=== PATIENT | female | born 1970 | race Caucasian/White ===

== ENCOUNTER 2022-12-30 12:09 | Emergency (ER) | payer OTHER ==
[2022-12-30 13:19] LABS: CHLORIDE,CL 103 mmol/L (98-107); SODIUM,NA 138 mmol/L (136-145)
[2022-12-30 13:20] LABS: ANION GAP 11.3 mmol/L (5-15); ESTIMATED GFR 77 mL/min (>=60)
[2022-12-30] MEDS ORDERED: Ketorolac 30 MG/ML SDV IM ONE (13:27)
== END 2022-12-30 13:42 | disposition home or self-care (01) ==
LOC: VM.ED 12:09
DX: R51.9 Headache, unspecified (principal); R42 Dizziness and giddiness; E11.9 Type 2 diabetes mellitus without complications; Z79.84 Long term (current) use of oral hypoglycemic drugs
CPT/HCPCS: 36415; 70450; 80053; 81003; 82550; 83615; 83735; 84484; 85025; 86140; 93005; 93010; 96372; 99284; J1885

== ENCOUNTER 2024-09-30 12:13 | Inpatient (IN) | payer OTHER ==
[2024-09-30] MEDS ORDERED: Sodium Chloride 0.9% 10 ML Syringe FLUSH PRN (12:35)
[2024-09-30 13:05] LABS: HEMATOCRIT 33.5 % (33.0-47.0); HEMOGLOBIN 11.9 g/dL (12.0-16.0); IMMATURE GRAN ABSOLUTE AUTO 0.16 x10^3/uL (0.00-0.07); LYMPHOCYTES ABSOLUTE AUTO 0.2 x10^3/uL (1.0-4.8); MEAN CORPUSCULAR HEMOGLOBIN 31.1 pg (26.0-32.0); MEAN CORPUSCULAR HGB CONC 35.5 g/dL (32.0-36.0); MEAN CORPUSCULAR VOLUME 87.5 fL (78.0-93.0); MONOCYTES ABSOLUTE AUTO 0.8 x10^3/uL (0.0-0.8); MONOCYTES PERCENT AUTO 6.1 % (2.0-11.0); NEUTROPHILS ABSOLUTE AUTO 12.4 x10^3/uL (1.8-7.7); NEUTROPHILS PERCENT AUTO 91.2 % (50.0-80.0); PLATELET COUNT,PLT 168 x10^3/uL (130-400); RED BLOOD CELL COUNT 3.83 x10^6/uL (4.00-5.50); WHITE BLOOD CELL COUNT,WBC 13.5 x10^3/uL (4.0-10.0)
[2024-09-30 13:11] LABS: LYMPHOCYTES PERCENT AUTO 1.5 % (25.0-50.0)
[2024-09-30] MEDS: Sodium Chloride 0.9% 1,000 ML IV ONE (13:25)
[2024-09-30] MEDS: cefTRIAXone 2 GM Vial IVPUSH ONE (13:25)
[2024-09-30 13:26] LABS: LACTIC ACID 1.6 mmol/L (0.4-2.0)
[2024-09-30 13:30] LABS: A/G RATIO 0.48; ALANINE AMINOTRANSFERASE,ALT 16 U/L (14-59); ALBUMIN 2.1 g/dL (3.4-5.0); ALKALINE PHOSPHATASE 104 U/L (46-116); ANION GAP 18.4 mmol/L (5-15); ASPARTATE AMNIOTRANSFERASE,AST 16 U/L (15-37); BILIRUBIN TOTAL 0.5 mg/dL (0.2-1.0); BLOOD UREA NITROGEN,BUN 62 mg/dL (7-18); CALCIUM 9.2 mg/dL (8.5-10.1); CARBON DIOXIDE,CO2 21 mmol/L (21-32); CHLORIDE,CL 87 mmol/L (98-107); ESTIMATED GFR 18 mL/min (>=60); GLUCOSE RANDOM 400 mg/dL (70-99); POTASSIUM,K 4.4 mmol/L (3.5-5.1); PROTEIN TOTAL,TP 6.5 g/dL (6.4-8.2)
[2024-09-30 13:36] LABS: SODIUM,NA 122 mmol/L (136-145)
[2024-09-30 13:41] LABS: C-REACTIVE PROTEIN 31.83 mg/dL (<=0.50)
[2024-09-30 14:02] LABS: HCO3 VENOUS,POC 17 mmol/L (22-29); O2 SATURATION VENOUS,POC 77 %; PCO2 VENOUS,POC 30 mmHg (41-51); PH VENOUS,POC 7.38 pH (7.32-7.43); PO2 VENOUS,POC 42 mmHg
[2024-09-30] MEDS ORDERED: Ondansetron 4 MG/2 ML SDV IV PRN (14:31)
[2024-09-30] MEDS ORDERED: Magnesium Hydroxide 400 MG/5 ML Susp 30 ML Cup PO PRN (14:34)
[2024-09-30] MEDS ORDERED: 50% Dextrose in Water 50 ML Syringe IVPUSH PRN ×2 (14:37→22:20)
[2024-09-30] MEDS ORDERED: Glucagon,Human Recombinant 1 MG Vial IM PRN ×2 (14:37→22:20)
[2024-09-30] MEDS ORDERED: Albuterol HFA 18 Gm Inhaler INH PRN (14:41)
[2024-09-30] MEDS ORDERED: [UNRECOGNIZED DRUG - REMARK] SCH (14:45)
[2024-09-30 15:32] LABS: LACTIC ACID 1.6 mmol/L (0.4-2.0)
[2024-09-30] MEDS: Morphine 2 MG/ML SYRINGE IVPUSH PRN (15:32)
[2024-09-30] MEDS: Sodium Chloride 0.9% 1,000 ML IV SCH (15:32)
[2024-09-30] MEDS: Insulin Lispro 100 Units/ML 3 ML Vial SUBCUT SCH (18:06)
[2024-09-30] MEDS: traZODone 50 MG Tab PO SCH (21:55)
[2024-09-30] MEDS: Enoxaparin 30 MG/0.3 ML Syringe SUBCUT SCH (21:55)
[2024-09-30] MEDS: VARENICLINE TARTRATE SCH (22:24)
[2024-09-30] MEDS: Insulin Regular, Human 100 Units/ML 10 ML Vial IV ONE (22:54)
[2024-10-01 08:01] LABS: BASOPHILS PERCENT AUTO 0.1 % (0.2-1.2); HEMATOCRIT 29.1 % (33.0-47.0); HEMOGLOBIN 10.2 g/dL (12.0-16.0); IMMATURE GRAN ABSOLUTE AUTO 0.15 x10^3/uL (0.00-0.07); LYMPHOCYTES ABSOLUTE AUTO 0.3 x10^3/uL (1.0-4.8); LYMPHOCYTES PERCENT AUTO 2.9 % (25.0-50.0); MEAN CORPUSCULAR HEMOGLOBIN 30.8 pg (26.0-32.0); MEAN CORPUSCULAR HGB CONC 35.1 g/dL (32.0-36.0); MEAN CORPUSCULAR VOLUME 87.9 fL (78.0-93.0); MONOCYTES ABSOLUTE AUTO 1.2 x10^3/uL (0.0-0.8); NEUTROPHILS ABSOLUTE AUTO 9.5 x10^3/uL (1.8-7.7); NEUTROPHILS PERCENT AUTO 84.7 % (50.0-80.0); PLATELET COUNT,PLT 136 x10^3/uL (130-400); RED BLOOD CELL COUNT 3.31 x10^6/uL (4.00-5.50); WHITE BLOOD CELL COUNT,WBC 11.2 x10^3/uL (4.0-10.0)
[2024-10-01] MEDS: cefTRIAXone 2 GM Vial IVPUSH SCH (08:17)
[2024-10-01] MEDS: glipiZIDE 2.5 MG Tab.ER PO SCH (08:17)
[2024-10-01] MEDS: Aspirin 81 MG Tab.Chew PO SCH (08:17)
[2024-10-01 09:08] LABS: A/G RATIO 0.41; ALBUMIN 1.5 g/dL (3.4-5.0); BILIRUBIN TOTAL 0.4 mg/dL (0.2-1.0); C-REACTIVE PROTEIN 20.54 mg/dL (<=0.50); CALCIUM 8.4 mg/dL (8.5-10.1); CREATININE 2.9 mg/dL (0.55-1.02); EST CRCL DRUG DOSING (CG) 17.74 mL/min; MAGNESIUM 2.1 mg/dL (1.8-2.4); POTASSIUM,K 3.6 mmol/L (3.5-5.1); PROTEIN TOTAL,TP 5.2 g/dL (6.4-8.2)
[2024-10-01 09:12] LABS: ANION GAP 15.6 mmol/L (5-15)
[2024-10-01] MEDS ORDERED: Acetaminophen 325 MG Tab PO PRN (11:31)
[2024-10-01] MEDS: Sodium Chloride/Potassium Chloride Tab PO SCH (12:59)
[2024-10-01 15:36] LABS: CALCIUM 8.3 mg/dL (8.5-10.1); CREATININE 2.7 mg/dL (0.55-1.02); EST CRCL DRUG DOSING (CG) 19.06 mL/min; POTASSIUM,K 3.9 mmol/L (3.5-5.1)
[2024-10-01 15:37] LABS: ANION GAP 12.9 mmol/L (5-15)
[2024-10-01] MEDS ORDERED: Insulin Lispro 100 Units/ML 3 ML Vial SUBCUT SCH (18:00)
== END 2024-10-01 15:45 | disposition short-term general hospital (02) | DRG 690 ==
LOC: VM.ED 12:13 → VM.MS 14:24
PROVIDERS: ADMIT Family Medicine; ATTEND Family Medicine
DX: N10 Acute pyelonephritis (principal); E87.1 Hypo-osmolality and hyponatremia; R78.81 Bacteremia; N17.9 Acute kidney failure, unspecified; E78.00 Pure hypercholesterolemia, unspecified; G43.909 Migraine, unspecified, not intractable, without status migrainosus; R49.0 Dysphonia; J30.9 Allergic rhinitis, unspecified; Z98.890 Other specified postprocedural states; Q68.8 Other specified congenital musculoskeletal deformities; Z79.84 Long term (current) use of oral hypoglycemic drugs; Z79.899 Other long term (current) drug therapy
CPT/HCPCS: 36415; 74176; 80048; 80053; 82803; 82947; 83605; 83735; 84145; 85025; 86140; 87040; 87077; 87186; 96361; 96374; 97162-GP; 99284; 99285-25; A9270-GY; J0696; J1650; J1815-GY; J2270; J7030; Q3014